=== PATIENT | male | born 2005 | race Caucasian/White ===

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

== ENCOUNTER 2023-01-10 09:07 | Emergency (ER) | payer BC, SELFPAY ==
[2023-01-10] VITALS (21 sets, daily range): BP systolic 112–135; BP diastolic 70–80; PULSE 60–94; RESP 11–22; TEMP 36.4; O2SAT 98–100
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
[2023-01-10 10:00] LABS: Hemoglobin 14.5 g/dL (14.0-18.0); Mean Corpuscular Hemoglobin 28.4 pg (26-34); Mean Corpuscular Volume 86.3 fl (80-100); Mean Platelet Volume 8.9 fl (7.4-10.4); Platelet Count Result 304 k/mm3 (150-375); Red Cell Distribution Width 12.4 % (11.5-14.5); White Blood Count 6.4 K/mm3 (4.5-10.0)
[2023-01-10] MEDS: SODIUM CHLORIDE 0.9% IV 1,000 ML 999 ML IV CONT ×2 (10:05→11:56)
[2023-01-10 10:41] LABS: Alanine Aminotransferase 119 U/L (6-50); Albumin Level 3.9 g/dL (3.7-5.6); Alkaline Phosphatase 93 U/L (58-237); Anion Gap 4 mmol/L (8-16); Aspartate Amino Transferase 31 U/L (17-59); Bilirubin,Total 0.5 mg/dL (0.2-1.3); Blood Urea Nitrogen 10 mg/dL (8-21); Calcium 8.9 mg/dL (8.9-10.7); Carbon Dioxide 31 mmol/L (22-30); Chloride 100 mmol/L (98-107); Estimated Glomerular Filt Rate > 60; Glucose 91 mg/dL (65-110); Lipase 61 U/L (23-300); Potassium 4.2 mmol/L (3.4-5.0); Sodium 135 mmol/L (134-143)
[2023-01-10 11:16] LABS: Band Neutrophils Percent 6 % (0-6); Neutrophils Percent Manual 44 % (46-73); Total Cells Counted 100
[2023-01-10 11:17] LABS: Atypical Lymphocytes Present; Eosinophils Absolute Manual 0.12 K/mm3 (0.02-0.5); Eosinophils Percent Manual 2 % (0-4); Lymphocytes Absolute Manual 2.11 K/mm3 (1.1-4.5); Lymphocytes Percent Manual 33 % (18-44); Monocytes Absolute Manual 0.96 K/mm3 (0.1-0.90); Monocytes Percent Manual 15 % (3-9); Platelet Estimate Adequate (Adequate); Schistocytes None Seen (NORMAL)
[2023-01-10 11:32] LABS: Appearance Urine Clear (Clear); Bilirubin Urine Negative (Negative); Blood Urine Negative (Negative); Color Urine Yellow (Yellow); Glucose Urine UA Negative (Negative); Ketones Urine Negative (Negative); Leukocyte Esterase Ur Negative LEU/UL (Negative); Nitrate Urine Negative (Negative); Protein Urine Negative (Negative); Specific Grav Ur 1.009 (1.001-1.035); Urobilinogen Urine 0.2 mg/dL (<2.0)
[2023-01-10 11:34] LABS: Add Urine Microscopic? NO
[2023-01-10 12:44] LABS: Lactic Acid Reflex 0.8 mmol/L (0.7-2.0)
== END 2023-01-10 15:01 | disposition home or self-care (01) ==
PROVIDERS: Emergency Provider Physician Assistant; PCP Family Medicine
DX: R11.2 Nausea with vomiting, unspecified (principal); R19.7 Diarrhea, unspecified; R63.0 Anorexia; Z11.6 Encounter for screening for other protozoal diseases and helminthiases; K21.9 Gastro-esophageal reflux disease without esophagitis; Z94.81 Bone marrow transplant status
CPT/HCPCS: 36415; 80053; 81003; 83605; 83690; 83735; 85025; 87040; 87207; 96360; 96361; 99283; J7030

== ENCOUNTER 2023-06-25 11:28 | Emergency (ER) | payer BC, SELFPAY ==
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
[2023-06-25 11:43] VITALS: BP 120/76; PULSE 77; RESP 16; TEMP 36.8; O2SAT 100
== END 2023-06-25 12:08 | disposition home or self-care (01) ==
PROVIDERS: Emergency Provider Nurse Practitioner Family; PCP Family Medicine
DX: J06.9 Acute upper respiratory infection, unspecified (principal); Z20.822 Contact with and (suspected) exposure to COVID-19; K21.9 Gastro-esophageal reflux disease without esophagitis; Z94.81 Bone marrow transplant status
CPT/HCPCS: 87426; 87804; 99213; G0463

== ENCOUNTER 2023-08-05 12:13 | Emergency (ER) | payer BC, SELFPAY ==
[2023-08-05 12:26] VITALS: BP 139/75; PULSE 91; RESP 16; TEMP 37; O2SAT 100
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
== END 2023-08-05 12:58 | disposition home or self-care (01) ==
PROVIDERS: Emergency Provider Nurse Practitioner; PCP Family Medicine
DX: J06.9 Acute upper respiratory infection, unspecified (principal); Z20.822 Contact with and (suspected) exposure to COVID-19; K21.9 Gastro-esophageal reflux disease without esophagitis
CPT/HCPCS: 87426; 87804; 99213; G0463

== ENCOUNTER 2024-08-25 12:42 | Emergency (ER) | payer BC, SELFPAY ==
[2024-08-25 12:59] VITALS: BP 131/62; PULSE 86; RESP 16; TEMP 36.8; O2SAT 100
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
[2024-08-25 13:15] LABS: EDCOVIDSCREEN Negative (Negative); EDINFLUASCREEN Negative (Negative); EDINFLUBSCREEN Negative (Negative); EDSTREPNEGPOS1 Negative (Negative)
== END 2024-08-25 13:18 | disposition home or self-care (01) ==
PROVIDERS: Emergency Provider Nurse Practitioner Family; Referring Provider Emergency Medicine
DX: J01.90 Acute sinusitis, unspecified (principal); Z20.822 Contact with and (suspected) exposure to COVID-19; Z94.81 Bone marrow transplant status
CPT/HCPCS: 87081; 87426; 87804; 87880; 99212; G0463